=== PATIENT | male | born 1990 ===

== ENCOUNTER 2018-05-07 17:42 | Emergency (ER) | payer SELFPAY ==
[2018-05-07 18:45] VITALS: BP 138/87; PULSE 83; RESP 18; TEMP 98.7; O2SAT 100
--- NOTE | 2018-05-07 19:23 | C.PDOC ---
History Of Present Illness 28 year old male complains of cotton stuck in left ear after cleaning ear this morning. Denies fever, drainage, dizziness, headache. Time Seen by Provider: 05/07/18 19:17 Chief Complaint (Nursing): Foreign Body History Per: Patient History/Exam Limitations: None Onset/Duration Of Symptoms: Hrs Current Symptoms Are (Timing): Still Present Quality (Ear): denies: Discharge Symptoms Have Been: Continuous Past Medical History Reviewed: Historical Data, Nursing Documentation, Vital Signs Vital Signs: Last Vital Signs Temp 98.7 F 05/07/18 18:43 Pulse 83 05/07/18 18:43 Resp 18 05/07/18 18:43 BP 138/87 05/07/18 18:43 Pulse Ox 100 05/07/18 19:42 - Medical History PMH: No Chronic Diseases Surgical History: No Surg Hx Family History: States: Unknown Family Hx - Social History Hx Alcohol Use: No Hx Substance Use: No - Immunization History Hx Tetanus Toxoid Vaccination: No Hx Influenza Vaccination: No Hx Pneumococcal Vaccination: No Review Of Systems Constitutional: Negative for: Fever ENT: Positive for: Other (Cotton in left ear). Negative for: Ear Discharge Neurological: Negative for: Headache, Dizziness Physical Exam - Physical Exam Appears: Non-toxic Skin: Normal Color, Warm, Dry Head: Atraumatic, Normacephalic Eye(s): bilateral: Normal Inspection Ear(s): Left: Other (Cotton in canal), Right: Normal Neurological/Psych: Oriented x3, Normal Speech ED Course And Treatment O2 Sat by Pulse Oximetry: 100 (Room air) Pulse Ox Interpretation: Normal Disposition Counseled Patient/Family Regarding: Diagnosis, Need For Followup - Disposition Referrals: Zion García MD [Staff Provider] - Disposition: HOME/ ROUTINE Disposition Time: 19:23 Condition: GOOD Instructions: Foreign Body in Ear, Child (DC) Forms: [facility] (Kinyarwanda) - POA Present On Arrival: None - Clinical Impression Clinical Impression: Foreign body of ear, left - 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 - Scribe Statement The provider has reviewed the documentation as recorded by the Scribe Jeff Beltre All medical record entries made by the Scribe were at my direction and personally dictated by me. I have reviewed the chart and agree that the record accurately reflects my personal performance of the history, physical exam, medical decision making, and the department course for this patient. I have also personally directed, reviewed, and agree with the discharge instructions and disposition. Procedures - FB Removal Ear Left Foreign Body Location: Ear Canal Left Foreign Body Suspected: Organic Matter (cotton tip) TM Intact Pre-Procedure: Unable to Visualize Foreign Body Removed: Yes Foreign Body Removal Technique: Forceps (alligator) TM Intact Post Procedure: Yes Patient Tolorated Procedure: Well Complications: None
== END 2018-05-07 19:32 | disposition home or self-care (01) ==
LOC: C.ER 17:42
DX: T16.2XXA Foreign body in left ear, initial encounter (principal); X58.XXXA Exposure to other specified factors, initial encounter; Y93.E8 Activity, other personal hygiene